=== PATIENT | male | born 1955 | race Caucasian/White ===

== ENCOUNTER 2023-06-20 13:44 | Emergency (ER) | payer MEDICARE, BC, SELFPAY ==
[2023-06-20 13:45] VITALS: BP 124/67; PULSE 59; RESP 18; TEMP 36.4; O2SAT 94; BMI 35.9
--- NOTE | 2023-06-20 14:15 | EX.ED.DYSGE1 ---
HPI <RIMA Pan - Last Filed: 06/20/23 17:09> History of Present Illness Chief Complaint: Syncope Narrative Narrative: Patient is a 67-year-old male with history of hypertension, CAD, OR with 2 stents, who is currently getting worked up for pancreatitis presents to the emergency department after a syncopal episode. Patient was at the [facility], this was for an outpatient MRI. Patient was n.p.o. since midnight last evening. The test was at 1 PM. Patient is not diabetic however not eat or drink anything. Patient received an IV to the left arm, after the IV was established, patient started to feel dizzy, and then had a syncopal episode. Per the , the patient looked pale, did not respond for 2 minutes. Patient then woke up, states he had to have a bowel movement and had a large diarrhea bowel movement. He then had nausea and vomiting. The patient still continues to feel exhausted, still feels pale and dizzy and is here for evaluation. Any chest pain or shortness of breath. Does complain of nausea. [facility] <RIMA Pan - Last Filed: 06/20/23 17:09> [facility] Medical History (Updated 06/20/23 @ 16:32 by RIMA Pan) Pancreatitis Home Medications aspirin 81 mg tablet,delayed release (Adult Low Dose Aspirin) 81 mg PO DAILY 06/20/23 [History Last Taken Unknown] clopidogrel 75 mg tablet 75 mg PO DAILY 06/20/23 [History Last Taken Unknown] dicyclomine 20 mg tablet 20 mg PO Q6H PRN PRN abdominal pain 06/20/23 [History Last Taken Unknown] isosorbide mononitrate 60 mg tablet,extended release 24 hr 60 mg PO DAILY 06/20/23 [History Last Taken Unknown] lisinopril 10 mg tablet (Zestril) 10 mg PO DAILY 06/20/23 [History Last Taken Unknown] metoprolol succinate 25 mg tablet,extended release 24 hr 25 mg PO Q12H 06/20/23 [History Last Taken Unknown] nitroglycerin 0.4 mg sublingual tablet 0.4 mg sublingual Q5M PRN chest pain 06/20/23 [History Last Taken Unknown] omeprazole magnesium 20 mg capsule,delayed release 20 mg PO DAILY 06/20/23 [History Last Taken Unknown] Allergy/AdvReac Type Severity Reaction Status Date / Time No Known Allergies Allergy Verified 06/20/23 13:45 Social History Smoking Status: Current every day smoker tobacco type: e-cigarettes ROS <RIMA Pan - Last Filed: 06/20/23 17:09> ROS ED ROS Narrative Constitutional: Negative for fever, chills, weight loss, weakness Eyes: Negative for vision loss, vision change, double vision ENT: Negative for any sore throat, ear pain, congestion Cardiovascular: Negative for any chest pain, tightness, palpitations Respiratory: Negative for any cough, sputum production, hemoptysis, dyspnea, dyspnea on exertion, orthopnea Gastrointestinal: Negative for any abdominal pain, constipation, blood in stool, blood in vomit. Nausea, vomiting, diarrhea : Negative for any urinary frequency, dysuria, retention, blood in urine Muscle skeletal: Negative for any muscle joint pain, stiffness, myalgias, arthralgias, neck pain, back pain Neurological: Negative for any headache, numbness or tingling, dizziness. Positive for syncope Skin: Negative for any rashes, lumps, itching, abrasions, lacerations Psychiatric: Negative for any depression, anxiety, stress, suicidal ideation, homicidal ideation Hematologic: Negative for any easy bruising, excessive bruising, easy bleeding Allergies: Negative for any eczema, hives, rash EXAM <RIMA Pan - Last Filed: 06/20/23 17:09> Physical Exam Narrative Exam Narrative: Vital signs reviewed. Patient is alert and orient x4. Patient does have an overall pale appearance, is on the monitor with bradycardia, blood pressure within normal limits. HEET: Head normocephalic atraumatic, TMs clear bilaterally. Posterior pharynx is clear, dry mucous membranes. Nares clear bilaterally. Neck: Supple with no lymphadenopathy or tenderness. No signs of meningismus, negative jolt sign. Cardiac: R cardiac rate, no murmurs gallops or rubs, equal peripheral pulses bilaterally. Respiratory: Lungs clear to auscultation bilaterally. No chest tenderness. Abdomen: Soft, nontender, nondistended. No abdominal bruit or pulsatile masses. No hepatosplenomegaly Extremities: No peripheral edema, no signs of gross trauma or deformity. Active full range of motion of all extremities. Neuro: Cranial nerves II through XII intact, no focal neurological deficits. Skin: Clean dry and intact with no rash, purpura, petechiae, vesicles or pustules. Pale appearance Backs/flank: No CVA tenderness, no midline spinal tenderness, no deformity. Psych: Normal mood and affect. No SI, HI or acute psychosis. Const Vital Signs: 06/20/23 13:45 06/20/23 13:49 06/20/23 16:15 Temperature 97.5 F L 97.4 F L Temperature Source Oral Pulse Rate 59 L 58 L Pulse Rate [Lying] Pulse Rate [Sitting (for 1 minute prior to obtaining)] Pulse Rate [Standing (for 1 minute prior to obtaining)] Respiratory Rate 18 15 Respiratory Effort Normal Non-Labored Respiratory Pattern Normal Blood Pressure 124/67 H 119/72 Blood Pressure [Lying] Blood Pressure [Sitting (for 1 minute prior to obtaining)] Blood Pressure [Standing (for 1 minute prior to obtaining)] Blood Pressure Mean 86 87 Blood Pressure Mean [Lying] Blood Pressure Mean [Sitting (for 1 minute prior to obtaining)] Blood Pressure Mean [Standing (for 1 minute prior to obtaining)] Pulse Ox 94 95 Oxygen Delivery Method Room Air 06/20/23 16:46 06/20/23 16:49 Temperature Temperature Source Pulse Rate 65 Pulse Rate [Lying] 55 L Pulse Rate [Sitting (for 1 minute prior to obtaining)] 58 L Pulse Rate [Standing (for 1 minute prior to obtaining)] 62 Respiratory Rate 17 Respiratory Effort Respiratory Pattern Blood Pressure 129/82 H Blood Pressure [Lying] 130/71 H Blood Pressure [Sitting (for 1 minute prior to obtaining)] 129/78 H Blood Pressure [Standing (for 1 minute prior to obtaining)] 129/82 H Blood Pressure Mean 94 Blood Pressure Mean [Lying] 90 Blood Pressure Mean [Sitting (for 1 minute prior to obtaining)] 95 Blood Pressure Mean [Standing (for 1 minute prior to obtaining)] 97 Pulse Ox Oxygen Delivery Method Positive well nourished and well developed General Appearance ED: well developed <Dr. John Valenzuela, DO - Last Filed: 06/21/23 00:21> Physical Exam Const Vital Signs: 06/20/23 13:45 06/20/23 13:49 06/20/23 16:15 Temperature 97.5 F L 97.4 F L Temperature Source Oral Pulse Rate 59 L 58 L Pulse Rate [Lying] Pulse Rate [Sitting (for 1 minute prior to obtaining)] Pulse Rate [Standing (for 1 minute prior to obtaining)] Respiratory Rate 18 15 Respiratory Effort Normal Non-Labored Respiratory Pattern Normal Blood Pressure 124/67 H 119/72 Blood Pressure [Lying] Blood Pressure [Sitting (for 1 minute prior to obtaining)] Blood Pressure [Standing (for 1 minute prior to obtaining)] Blood Pressure Mean 86 87 Blood Pressure Mean [Lying] Blood Pressure Mean [Sitting (for 1 minute prior to obtaining)] Blood Pressure Mean [Standing (for 1 minute prior to obtaining)] Pulse Ox 94 95 Oxygen Delivery Method Room Air 06/20/23 16:46 06/20/23 16:49 Temperature Temperature Source Pulse Rate 65 Pulse Rate [Lying] 55 L Pulse Rate [Sitting (for 1 minute prior to obtaining)] 58 L Pulse Rate [Standing (for 1 minute prior to obtaining)] 62 Respiratory Rate 17 Respiratory Effort Respiratory Pattern Blood Pressure 129/82 H Blood Pressure [Lying] 130/71 H Blood Pressure [Sitting (for 1 minute prior to obtaining)] 129/78 H Blood Pressure [Standing (for 1 minute prior to obtaining)] 129/82 H Blood Pressure Mean 94 Blood Pressure Mean [Lying] 90 Blood Pressure Mean [Sitting (for 1 minute prior to obtaining)] 95 Blood Pressure Mean [Standing (for 1 minute prior to obtaining)] 97 Pulse Ox Oxygen Delivery Method [place] <RIMA Pan - Last Filed: 06/20/23 17:09> [facility] Lab Data Labs: Laboratory Results - last 24 hr 06/20/23 06/20/23 14:26 16:20 WBC 7.4 RBC 4.36 L Hgb 12.4 L Hct 39.3 L MCV 90.1 MCH 28.4 MCHC 31.6 L RDW Std Deviation 43.0 RDW Coeff of Melany 13.1 Plt Count 217 MPV 9.6 Immature Gran % (Auto) 0.700 Neut % (Auto) 63.6 Lymph % (Auto) 25.9 [place]rack[place] % (Auto) 7.4 Eos % (Auto) 1.6 Baso % (Auto) 0.8 Absolute Neuts (auto) 4.7 Absolute Lymphs (auto) 1.92 Nucleated RBC % 0 Sodium 143 Potassium 3.4 L Chloride 113 H Carbon Dioxide 25.0 Anion Gap 5 BUN 18 Creatinine 1.09 Estim Creat Clear Calc 74.32 Est GFR (MDRD) Af Amer 87 Est GFR (MDRD) Non-Af 72 BUN/Creatinine Ratio 16.5 Glucose 128 H Calcium 7.4 L Total Bilirubin 0.60 AST 17 ALT 21 Alkaline Phosphatase 100 Troponin I High Sens 6 7 Total Protein 5.7 L Albumin 2.8 L Globulin 2.9 Albumin/Globulin Ratio 1.0 Lipase 20 Radiography Diagnostic Testing: Clinical Impression(s) from Imaging Studies Chest X-Ray 06/20/23 14:40 IMPRESSION: Increased markings at both lung bases worse on the right base with blunting of right costophrenic angle. Radiographic follow-up is recommended. Electronically Signed: Wisam Morgan MD at 15:23 EDT , EKG Sinus bradycardia: Attestation: I personally reviewed and interpreted this EKG as follows: Comments: Sinus bradycardia, rate of 54 bpm, MA interval 132 ms, QRS duration 96 ms, no acute ST elevation, no acute infarct noted Treatment and Re-Evaluation :: Patient is in no obvious respiratory distress, vital signs are stable. Presenting to the emergency department after syncopal episode. Speaking with the patient, the patient's , this does seem to be a vasovagal episode. The concern is, the patient is not bouncing back as quick, the patient is also has not ate and drink since midnight last evening. He has no history of diabetes. Patient will receive a cardiac work-up, given IV fluids, IV Zofran. After the patient feels less nauseous, patient will be given something to eat. Differential diagnosis includes vasovagal syncope, orthostatic hypotension, hypoglycemia, cardiac arrhythmia. Patient's laboratory values showed normal CBC, patient's chemistries were unremarkable. Patient's troponin was negative. Patient's chest x-ray shows increased markings at both lung bases, patient will receive a second troponin. Patient is still slightly lethargic, patient per the is still not acting appropriate. At this time, I do believe the patient needs to be admitted to the hospital. I spoke with hospitalist, Dr. Lal who is agreeable. Patient will received orthostatic vital signs, as well as troponins. Patient vital signs remained stable. Stable for admission Once hospitalist talk with the patient in the emergency department, the patient did feel much better. Patient did eat, after the fluids, the patient states that he is not sure he wants to be admitted. I spoke with the patient, the hospitalist, the patient did ambulate to the bathroom, he felt much better. Patient states he is feeling back to normal, the patient's also thinks he looks back to normal. At this time, patient would not be admitted to the hospital, the patient will be discharged home. Patient be diagnosed with vasovagal syncope. Given return precautions patient's orthostatics were negative. <Dr. John Valenzuela, DO - Last Filed: 06/21/23 00:21> [facility] Narrative Medical decision making narrative: I have personally performed a face to face assessment of the patient and have reviewed the SHANTI Note. I performed a substantive portion of the visit including all aspects of the following. My cummings findings include: History: Patient presents with a syncopal episode that occurred today. Patient was getting an IV placed for a test. Patient had been n.p.o. since midnight last night test. Patient states he felt nauseated and lightheaded. Patient states that he was unconscious. states that she was trying to slap him in the cheek to get him to wake up and breathe. states the patient did not turn blue however he was not breathing well. Patient then woke up and had an episode of diarrhea. Patient denies any melena or hematochezia with the diarrhea. Patient denies any abdominal pain. Patient denies any chest pain or shortness of breath. Exam: Vital signs are stable. Patient is afebrile. Patient is in no acute distress. Pupils are equal, round, reactive to light bilaterally. Conjunctiva is clear. Oral mucosa is pink and moist. Neck is supple. Trachea is midline. There is no JVD. Heart was regular rate and rhythm. Lungs are clear and equal bilaterally. Abdomen is soft. Bowel sounds are normal. There is no tenderness. Cranial nerves II through XII are intact. There are no focal motor or sensory deficits noted. Medical Decision Making: Differential diagnosis includes vasovagal syncope, dehydration, electrolyte abnormality, anemia, electrolyte abnormality, cardiac dysrhythmia, cardiac ischemia, and hypoglycemia. CBC will be obtained to assess for leukocytosis and anemia. Comprehensive metabolic profile will be obtained to assess for hepatic function, renal function, electrolyte abnormality, and hypoglycemia. Lipase will be obtained to assess for pancreatitis. High-sensitivity troponin will be obtained to assess for cardiac ischemia. Urinalysis will be obtained to assess for urinary tract infection. Chest x-ray will be obtained to assess for pneumonia and cardiomegaly. EKG will be obtained to assess for cardiac dysrhythmia and cardiac ischemia. EKG was obtained. On my independent interpretation, it shows a sinus bradycardia with a rate of 54. There are no acute ST or T wave changes noted. MA interval, QRS interval, and QTc intervals are within normal limits. [place] is normal. Portable 1 view chest x-ray was obtained. On my independent interpretation, lung teixeira are clear. There is normal cardiac silhouette. Bony thorax is normal. There is no acute process noted. Radiologist also interpreted the x-ray and agrees. CBC was reviewed. Hemoglobin was 12.4 and hematocrit was 39.3. The remainder is within normal limits. Comprehensive metabolic profile was reviewed and was essentially within normal limits.. Lipase was reviewed and was normal at 20. Initial high-sensitivity troponin was reviewed and was normal at 6. 12 repeat high-sensitivity troponin was reviewed and was normal at 7. Chest x-ray, case was discussed with the hospitalist. She was in to evaluate the patient. On her evaluation, patient stated he was feeling back to normal and was only mildly nauseated. Patient wanted to go home and did not want to be admitted to the hospital. I went back in and reevaluated the patient. He was feeling better. Patient was advised that this is most likely a vasovagal syncope. Patient was instructed to drink plenty of fluids. Patient was instructed to follow-up with his primary care physician in 5 to 7 days. Patient was instructed to reschedule his MRCP. Patient understood and was agreeable with the plan. All questions were answered. Lab Data Labs: Laboratory Results - last 24 hr 06/20/23 06/20/23 14:26 16:20 WBC 7.4 RBC 4.36 L Hgb 12.4 L Hct 39.3 L MCV 90.1 MCH 28.4 MCHC 31.6 L RDW Std Deviation 43.0 RDW Coeff of Melany 13.1 Plt Count 217 MPV 9.6 Immature Gran % (Auto) 0.700 Neut % (Auto) 63.6 Lymph % (Auto) 25.9 Mccracken % (Auto) 7.4 Eos % (Auto) 1.6 Baso % (Auto) 0.8 Absolute Neuts (auto) 4.7 Absolute Lymphs (auto) 1.92 Nucleated RBC % 0 Sodium 143 Potassium 3.4 L Chloride 113 H Carbon Dioxide 25.0 Anion Gap 5 BUN 18 Creatinine 1.09 Estim Creat Clear Calc 74.32 Est GFR (MDRD) Af Amer 87 Est GFR (MDRD) Non-Af 72 BUN/Creatinine Ratio 16.5 Glucose 128 H Calcium 7.4 L Total Bilirubin 0.60 AST 17 ALT 21 Alkaline Phosphatase 100 Troponin I High Sens 6 7 Total Protein 5.7 L Albumin 2.8 L Globulin 2.9 Albumin/Globulin Ratio 1.0 Lipase 20 Radiography Diagnostic Testing: Clinical Impression(s) from Imaging Studies Chest X-Ray 06/20/23 14:40 IMPRESSION: Increased markings at both lung bases worse on the right base with blunting of right costophrenic angle. Radiographic follow-up is recommended. Electronically Signed: Wisam Morgan MD at 15:23 EDT , Discharge Plan Triage Chief Complaint: Syncope ED Midlevel Provider: Sajan Motley ED Provider: John Valenzuela Dx/Rx/DC Orders Clinical Impression: Syncope, vasovagal, Lethargic Instructions: Causes of Syncope, ED Fainting, Vagal Reaction Prescriptions: No Action aspirin [Adult Low Dose Aspirin] 81 mg tablet,delayed release (DR/EC) 81 mg PO DAILY clopidogrel 75 mg tablet 75 mg PO DAILY Patient Comments: TAKE ONE TABLET BY MOUTH EVERY DAY dicyclomine 20 mg tablet 20 mg PO Q6H PRN PRN (Reason: abdominal pain) isosorbide mononitrate 60 mg tablet extended release 24 hr 60 mg PO DAILY lisinopril [Zestril] 10 mg tablet 10 mg PO DAILY metoprolol succinate 25 mg tablet extended release 24 hr 25 mg PO Q12H Patient Comments: TAKE ONE TABLET BY MOUTH TWO TIMES A DAY nitroglycerin 0.4 mg tablet, sublingual 0.4 mg sublingual Q5M PRN (Reason: chest pain) Patient Comments: DISSOLVE 1 TABLET UNDER THE TONGUE EVERY 5 MINUTES NEEDED omeprazole magnesium 20 mg capsule,delayed release(DR/EC) 20 mg PO DAILY Primary Care Provider: Orion Joseph Referrals: Orion Joseph MD [Primary Care Provider] - Activity Restrictions/Additional Instructions: Ensure that you eat, as well as change positions slowly over the next 24 to 48 hours Disposition Disposition: Home, Self Care Discharge Date/Time: 06/20/23 17:34
--- NOTE | 2023-06-20 14:17 | NURSING ---
NO OLD EKGS
[2023-06-20] MEDS: 0.9% Normal Saline (1000mL) 1,000 ML 1000 ML IV (14:28)
[2023-06-20] MEDS: Ondansetron 4 MG/2 ML Vial IV (14:28)
[2023-06-20 14:32] LABS: Absolute Lymphocyte Count 1.92 X10^3/uL (0.83-4.51); Absolute Neutrophil Count 4.7 X10^3/uL (2.0-7.7); Basophil# 0.06 X10^3/uL; Basophil% 0.8 % (0-1); Eosinophil# 0.12 X10^3/uL; Eosinophils% 1.6 % (0-5); Hematocrit 39.3 % (40-54); Hemoglobin 12.4 g/dL (13.0-16.5); Lymphocyte # 1.92 X10^3/ul (0.83-4.51); Lymphocyte % 25.9 % (19-41); Mean Corp Hgb Conc 31.6 g/dL (32-36); Mean Corpuscular Hgb 28.4 pg (27.0-32.0); Mean Corpuscular Volume 90.1 fL (80-94); Mean Platelet Vol. 9.6 fl (6.2-12.0); Monocyte# 0.55 X10^3/uL; Monocyte% 7.4 % (0-10); NRBC Flagged by Analyzer 0 % (0-5); Neutrophil % 63.6 % (47-70); Platelet Count 217 K/mm3 (150-450); RBC Distribution Width CV 13.1 % (11.6-14.6); Red Blood Count 4.36 M/mm3 (4.6-6.2); White Blood Count 7.4 K/mm3 (4.4-11.0)
--- NOTE | 2023-06-20 14:40 | RAD_ITS ---
STUDY: X-RAY CHEST REASON FOR EXAM: Male, 67 years old. Cough TECHNIQUE: Single AP portable view of the chest. COMPARISON: None. FINDINGS: EKG electrodes are seen. Mild increased markings at the lung bases slightly more prominent at the right lung base with blunting of the right costophrenic angle. Radiographic follow-up recommended. Normal size heart. Normal mediastinum and josue. Normal visualized pulmonary arteries. There is atherosclerotic tortuosity of the aortic arch and descending thoracic aorta. There are diffuse degenerative changes of the visualized thoracic spine. Evidence of prior right rotator cuff surgery. There is no demonstrated abnormality of the visualized soft tissue structures of the upper abdomen. RAD/Chest 1 View IMPRESSION: Increased markings at both lung bases worse on the right base with blunting of right costophrenic angle. Radiographic follow-up is recommended. Electronically Signed: Wisam Morgan MD at 15:23 EDT ,
[2023-06-20 14:51] LABS: AST(SGOT) 17 U/L (15-37); Alanine Aminotransfer ALT/SGPT 21 U/L (16-61); Albumin, Serum 2.8 g/dL (3.2-5.0); Alkaline Phosphatase 100 U/L (45-117); Anion Gap 5 (5-15); BUN 18 mg/dL (7-18); BUN/Creat Ratio 16.5 RATIO (10-20); Calcium,Total 7.4 mg/dL (8.5-10.1); Chloride 113 mmol/L (98-107); Creatinine, Serum 1.09 mg/dL (0.70-1.30); EST Glomerular Filtration Rate 72 mL/min (>60); Est Glom Filt Rate - Afr Amer 87 mL/min (>60); Estimated Creatinine Clearance 74.32 ml/min; Globulin 2.9 g/dL (2.2-4.2); Glucose 128 mg/dL (74-106); Lipase 20 U/L (13-75); Potassium 3.4 mmol/L (3.5-5.1); Protein, Total 5.7 g/dL (6.4-8.2); Sodium Level 143 mmol/L (136-145); Troponin-I HS 6 pg/mL (3.0-78.0)
--- NOTE | 2023-06-20 16:05 | NURSING ---
PCU OBS VERONICA VASOVAGEL SYNCOPE, LETHARGY
--- NOTE | 2023-06-20 16:08 | HP.PCM.HOS_ITS ---
HPI - General General Date of Admission: 06/20/23 Date of Service: 06/20/23 Chief Complaint: Syncope HPI Narrative ANDRY GUADALUPE, is a 67 M who presented to the emergency department [facility] on 06/20/2023 after syncopal episode he suffered earlier today while waiting for an outpatient MRCP at the [facility] outpatient facility. He had been n.p.o. since last evening and the test was at 1 PM. The patient was not able to eat or drink anything prior to the procedure and he got an IV in his left arm and after the IV it was established he became dizzy and then had a syncopal episode. Per his he looked very pale and did not respond for approximately 2 minutes. Upon awakening he was reported to have a bowel movement that was large and loose and then had some nausea and vomiting. [facility] Medical History (Updated 06/20/23 @ 16:[address] Nellie Lal, ) Pancreatitis Allergy/AdvReac Type Severity Reaction Status Date / Time No Known Allergies Allergy Verified 06/20/23 13:45 Social History Smoking Status: Current every day smoker tobacco type: e-cigarettes Vital Signs Vital Signs Vital Signs: 06/20/23 13:45 06/20/23 13:49 Temperature 97.5 F L Temperature Source Oral Pulse Rate 59 L Respiratory Rate 18 Respiratory Effort Normal Non-Labored Respiratory Pattern Normal Blood Pressure 124/67 H Blood Pressure Mean 86 Pulse Ox 94 Oxygen Delivery Method Room Air Weight Weight: 123.3 kg Body Mass Index (BMI) 35.9 Results Lab / Micro Data 06/20/23 14:26 06/20/23 14:26 Labs: Laboratory Results - last 24 hr 06/20/23 14:26: WBC 7.4, RBC 4.36 L, Hgb 12.4 L, Hct 39.3 L, MCV 90.1, MCH 28.4, MCHC 31.6 L, RDW Std Deviation 43.0, RDW Coeff of Melany 13.1, Plt Count 217, MPV 9.6, Immature Gran % (Auto) 0.700, Neut % (Auto) 63.6, Lymph % (Auto) 25.9, [place] % (Auto) 7.4, Eos % (Auto) 1.6, Baso % (Auto) 0.8, Absolute Neuts (auto) 4.7, Absolute Lymphs (auto) 1.92, Nucleated RBC % 0, Sodium 143, Potassium 3.4 L, Chloride 113 H, Carbon Dioxide 25.0, Anion Gap 5, BUN 18, Creatinine 1.09, Estim Creat Clear Calc 74.32, Est GFR (MDRD) Af Amer 87, Est GFR (MDRD) Non-Af 72, BUN/Creatinine Ratio 16.5, Glucose 128 H, Calcium 7.4 L, Total Bilirubin 0.60, AST 17, ALT 21, Alkaline Phosphatase 100, Troponin I High Sens 6, Total Protein 5.7 L, Albumin 2.8 L, Globulin 2.9, Albumin/Globulin Ratio 1.0, Lipase 20 Radiology Impression Chest X-Ray 06/20/23 14:40 IMPRESSION: Increased markings at both lung bases worse on the right base with blunting of right costophrenic angle. Radiographic follow-up is recommended. Electronically Signed: Wisam Morgan MD at 15:23 EDT , Assessment & Plan Assessment/Plan (1) Syncope: (2) Hypokalemia: Charges/Coding Visit Charges Inpatient E&M: 76389 Init Hosp L2
[2023-06-20 16:15] VITALS: BP 119/72; PULSE 58; RESP 15; TEMP 36.3; O2SAT 95
[2023-06-20 16:46] VITALS: BP 129/78; BP 129/82; BP 130/71; PULSE 55; PULSE 58; PULSE 62
[2023-06-20 16:49] VITALS: BP 129/82; PULSE 65; RESP 17
[2023-06-20 17:13] LABS: Troponin-I HS 7 pg/mL (3.0-78.0)
== END 2023-06-20 17:34 | disposition home or self-care (01) ==
LOC: ED 14:42 → PCU 16:18
PROVIDERS: Nurse Practitioner; Emergency Provider Internal Medicine; PCP Internal Medicine; Visit Provider Internal Medicine
DX: R55 Syncope and collapse (principal); R53.83 Other fatigue; F17.290 Nicotine dependence, other tobacco product, uncomplicated; I10 Essential (primary) hypertension; I25.10 Atherosclerotic heart disease of native coronary artery without angina pectoris; I25.2 Old myocardial infarction; Z95.5 Presence of coronary angioplasty implant and graft; Z79.02 Long term (current) use of antithrombotics/antiplatelets; Z79.82 Long term (current) use of aspirin; Z79.899 Other long term (current) drug therapy
CPT/HCPCS: 71045; 80053; 83690; 84484; 85025; 93005; 96361; 96374; 99285; J7030; A4216; J2405